=== PATIENT | female | born 1945 | race Caucasian/White ===

== ENCOUNTER 2023-05-03 09:48 | Emergency (ER) | payer OTHER, SELFPAY ==
[2023-05-03 09:57] VITALS: BP 136/70
[2023-05-03 10:50] LABS: % Basophils 0.4 % (0-2); % Eosinophils 0.2 % (0-6); % Immature Granulocytes 0.3 % (0-0.5); % Lymphocytes 6.3 % (20.5-51.1); % Monocytes 3.3 % (1.7-9.3); % Neutrophils 89.5 % (42.2-75.2); Absolute Lymphocytes 0.6 10^3/uL (1.2-3.4); Absolute Monocytes 0.3 10^3/uL (0.1-0.6); Absolute Neutrophils 9.1 10^3/uL (1.4-6.5); Hematocrit 39.6 % (37.0-47.0); Hemoglobin 13.2 g/dL (12.0-16.0); Mean Corp Hgb Conc. 33.3 g/dL (33.0-37.0); Mean Corpuscular Hgb 29.4 pg (27.0-31.0); Mean Corpuscular Volume 88.2 fL (81.0-99.0); Mean Platelet Volume 11.5 fL (7.4-10.4); Nucleated Red Blood Cells % 0 %; Platelet Count 240 10^3/uL (130-400); Red Blood Cell Count 4.49 10^6/uL (4.20-5.40); Red Cell Dist. Width 14.4 % (11.5-14.5); White Blood Cell Count 10.2 10^3/uL (4.8-10.8)
[2023-05-03 11:03] LABS: ALT (SGPT) 47 U/L (0-35); AST (SGOT) 46 U/L (14-36); Albumin 4.4 g/dl (3.5-5.0); Alkaline Phosphatase 103 U/L (38-126); Blood Urea Nitrogen 24 mg/dl (7-17); Calcium 10.1 mg/dl (8.4-10.2); Carbon Dioxide 25 mmol/L (22-30); Chloride 104 mmol/L (98-107); Glucose 142 mg/dl (70-99); Potassium 4.4 mmol/L (3.5-5.1); Sodium 135 mmol/L (135-145); Total Bilirubin 0.6 mg/dl (0.2-1.3); Total Protein 7.2 g/dl (6.3-8.2); eGFR > 60.00
--- NOTE | 2023-05-03 11:53 | ED.GENMED ---
History of Present Illness
<NAYELY Perez - Last Filed: 05/04/23 07:16>
General
Chief Complaint: Back Pain
Source: patient
Exam Limitations: none
Time Seen by Provider: 05/03/23 10:21
Nursing documentation reviewed up to this point in time: agreed with
Travel History
Have you had any contact with someone who has COVID-19?: No
Do you have any symptoms of coronavirus? Fever > 100 degrees, chills, cough, shortness of breath, sore throat, loss of taste or smell, muscle aches, or headache?: No
History of Present Illness
History of Present Illness:
Patient is a 77-year-old female who presents today with right back pain. Patient ports yesterday morning she noticed it while turning in bed she got up and went through her day and pain had resolved however came back last night and has been
persistent. She does feel at times is worse with movement. She was nauseous with this. She denies any chest pain shortness of breath. Denies any urinary frequency urgency or dysuria. Denies any actual trauma.
Review of Systems
<NAYELY Perez - Last Filed: 05/04/23 07:16>
Review of Systems
Allergies reviewed?: Yes
All Other Systems: ROS reviewed and negative except as documented in HPI and ROS
Constitutional: Reports no symptoms; Denies fever, fatigue or chills
Respiratory: Reports no symptoms
Cardiac: Reports no symptoms
ABD/GI: Reports nausea; Denies vomiting or diarrhea
: Reports flank pain
Musculoskeletal: Reports back pain (right back pain )
Endocrine: Reports no symptoms
Hematologic/Lymphatic: Reports no symptoms
Psychiatric: Reports no symptoms
Phy Exam
<NAYELY Perez - Last Filed: 05/04/23 07:16>
General Physical Exam
General Presentation: no apparent distress
General age: appears stated age
General Skin: warm and dry
General Habitus: normal
General Mental: alert
General Hydration: appears well hydrated
General Chronic Disability: contractures
Cardiovascular Exam
Cardiovascular Exam: regular rate/rhythm, no murmur and normal peripheral pulses
Pulmonary Exam
Pulmonary Exam: lungs clear
Gastrointestinal Exam
Gastrointestinal Exam: non tender and soft
Neurological Exam
Neurological Exam: alert and oriented x3
Musculoskeletal Exam
Musculoskeletal Exam: other (right back pain , questionable mild tenderness to palpation right /lower back however + discomfort at rest in supine position )
Skin Exam
Skin Exam: normal color and warm/dry
Psychiatric Exam
Psychiatric Exam: normal mood/affect
Course
<NAYELY Perez - Last Filed: 05/04/23 07:16>
Orders/Labs/Results
Orders:
Orders
05/03/23 10:40
CMP [Comprehensive Metabolic Panel] Urgent
Complete Blood Count/With Diff Urgent
05/03/23 11:53
Ketorolac [Toradol] 15 mg IV NOW STA
Ondansetron Injectable [Zofran] 4 mg IV NOW STA
05/03/23 11:54
CT Abd/pel Without Iv Or Oral Urgent
Comment:
Reason For Exam: right back pain
05/03/23 13:52
Morphine Sulfate 2 mg IV NOW STA
05/03/23 13:54
US Pelvis W Transvag Combined Urgent
Reason For Exam: right back pain adnexal mass
05/03/23 14:13
UA Reflex to Culture [Urinalysis Reflex To Culture] Urgent
Date Specimen was Collected: 05/03/23
Time Specimen was Collected: 14:08
Abnormal Lab Results
05/03/23 05/03/23
10:40 14:13
MPV 11.5 H fL
(7.4-10.4)
Absolute Neuts (auto) 9.1 H 10^3/uL
(1.4-6.5)
Absolute Lymphs (auto) 0.6 L 10^3/uL
(1.2-3.4)
Neutrophils % 89.5 H %
(42.2-75.2)
Lymphocytes % 6.3 L %
(20.5-51.1)
BUN 24 H mg/dl
(7-17)
Glucose 142 H mg/dl
(70-99)
AST 46 H U/L
(14-36)
ALT 47 H U/L
(0-35)
Urine Ketones 2+ A
(Negative)
05/03/23 10:40
05/03/23 10:40
Vital Signs
Initial and Last Documented VS:
Initial Vital Signs
Temp Pulse Resp BP Pulse Ox
97.9 F 71 16 136/70 98
05/03/23 09:57 05/03/23 09:57 05/03/23 09:57 05/03/23 09:57 05/03/23 09:57
Last Documented Vital Signs
Temp Pulse Resp BP Pulse Ox
97.9 F 82 16 137/75 97
05/03/23 09:57 05/03/23 19:25 05/03/23 19:25 05/03/23 19:25 05/03/23 15:50
<Sara Montana MD - Last Filed: 05/03/23 19:04>
Orders/Labs/Results
Orders:
Orders
05/03/23 10:40
CMP [Comprehensive Metabolic Panel] Urgent
Complete Blood Count/With Diff Urgent
05/03/23 11:53
Ketorolac [Toradol] 15 mg IV NOW STA
Ondansetron Injectable [Zofran] 4 mg IV NOW STA
05/03/23 11:54
CT Abd/pel Without Iv Or Oral Urgent
Comment:
Reason For Exam: right back pain
05/03/23 13:52
Morphine Sulfate 2 mg IV NOW STA
05/03/23 13:54
US Pelvis W Transvag Combined Urgent
Reason For Exam: right back pain adnexal mass
05/03/23 14:13
UA Reflex to Culture [Urinalysis Reflex To Culture] Urgent
Date Specimen was Collected: 05/03/23
Time Specimen was Collected: 14:08
Abnormal Lab Results
05/03/23 05/03/23
10:40 14:13
MPV 11.5 H fL
(7.4-10.4)
Absolute Neuts (auto) 9.1 H 10^3/uL
(1.4-6.5)
Absolute Lymphs (auto) 0.6 L 10^3/uL
(1.2-3.4)
Neutrophils % 89.5 H %
(42.2-75.2)
Lymphocytes % 6.3 L %
(20.5-51.1)
BUN 24 H mg/dl
(7-17)
Glucose 142 H mg/dl
(70-99)
AST 46 H U/L
(14-36)
ALT 47 H U/L
(0-35)
Urine Ketones 2+ A
(Negative)
05/03/23 10:40
05/03/23 10:40
Vital Signs
Initial and Last Documented VS:
Initial Vital Signs
Temp Pulse Resp BP Pulse Ox
97.9 F 71 16 136/70 98
05/03/23 09:57 05/03/23 09:57 05/03/23 09:57 05/03/23 09:57 05/03/23 09:57
Last Documented Vital Signs
Temp Pulse Resp BP Pulse Ox
97.9 F 82 16 137/75 97
05/03/23 09:57 05/03/23 19:25 05/03/23 19:25 05/03/23 19:25 05/03/23 15:50
<NAYELY Perez - Last Filed: 05/04/23 07:16>
MDM/Problems Addressed
Differential Diagnosis Includes:
Not limited to muscle pain, renal colic
MDM/Problems Addressed:
Patient is a 77-year-old female who presented with right-sided back pain. She initially noticed it while rolling over in bed yesterday morning however felt fine throughout the day but pain presented back again throughout the night. It has been
constant however she does complain of pain to the right flank area. She was initially mildly tender on exam to this area and had pain worse with discomfort however over time she reports pain is more constant and she does feel at rest . She is
mildly nauseous with the pain. She denies any fever chills urinary frequency urgency or dysuria. She arrives afebrile with normal labs CAT scan without contrast was performed which does show complex right adnexal mass measuring up to 3 cm
differential includes benign and malignant ovarian lesions. On re-exam patient is having continued pain we will give small dose of IV morphine. She did have Toradol earlier only improved minimally. d/c w/ ED physician will obtain US with
continued pain.
<NAYELY Perez - Last Filed: 05/04/23 07:16>
*Radiology
Radiology exam reviewed: radiology read reviewed (Complex right adnexal mass measuring up to 3.0 cm differential includes benign and malignant ovarian lesion)
*Pulse Oximetry
Patient hypoxic: no
*Critical Care Note
Total Time (30-74mins, 75-104mins- exclusive of procedures): Not Applicable
ED Attending Note
<NAYELY Perez - Last Filed: 05/04/23 07:16>
-
Portions of this chart may have been created with voice recognition software.� Occasional wrong word or��sound alike� substitutions may have occurred due to the inherent limitations of voice recognition software.
<Sara Montana MD - Last Filed: 05/03/23 19:04>
ED Attending Note
Patient seen and examined by attending physician: Yes
I performed the substantive portion of visit, reviewed & personally made and approve the management plan that is documented in note by myself or [facility].: Yes
ED Attending Note:
Patient seen and examined by me, 77-year-old female complains of right-sided flank pain without radiation. Initially was worse with movement now constant. Rated 2 out of 10 at this time. No associated rash noted. No abdominal pain, vomiting,
fever, chills, chest pain, urinary symptoms. She did have nausea which is now resolved. On exam, no midline tenderness, no rash, no skin findings. Patient moves about bed easily. Neurologically intact. Abdomen soft nontender. Extensive workup
which reveals adnexal mass bilaterally with potential for neoplasm. Patient and niece who is at bedside made aware, given disc and copies of report. Unclear if this is related to or the etiology of her back pain. Workup otherwise unrevealing for
serious cause of pain. Discussed with patient importance of follow-up and reasons return to the ER.
Discharge Plan
Departure
Patient Disposition: Home (Routine Discharge)
Date of Disposition: 05/03/23
Time of Disposition: 18:59
Patient with high blood pressure during this ER visit?: Yes
Condition: Fair
Covid-19: Not Applicable
Discharge Problem:
Back pain
Instructions: Back Pain, BLOOD PRESSURE
Prescriptions:
New
acetaminophen-codeine 300-30 mg tablet
1 tab PO Q8H PRN (Reason: Pain) Qty: 7 0RF
Referrals:
UNKNOWN - PT DOES,NOT KNOW [Family Provider] -
Activity Restrictions/Additional Instructions:
Follow-up as discussed with your family doctor/lcsw for further evaluation of findings on your CAT scan: Complex right adnexal(ovarian ) mass measuring up to 3.0 cm.
Return if any worsening of symptoms. PLEASE SEE ATTACHED REPORTS REGARDING CONCERNING FINDINGS IN YOUR PELVIS. IS VERY IMPORTANT THAT YOU HAVE THIS CLOSELY FOLLOWED UP. IF YOU DEVELOP INCREASING OR NEW PAIN, NAUSEA, VOMITING, FEVER, CHILLS,
ABDOMINAL PAIN, NUMBNESS, TINGLING DIFFICULTY URINATING, PAIN WITH URINATION OR BLOOD IN YOUR URINE, OR OTHER WORRISOME SIGNS, PLEASE RETURN TO THE ER IMMEDIATELY.
Interventions
Interventions:
*Risk Screen - Suicide Last Done: 05/03/23 11:57
*General Assessment Last Done: 05/03/23 11:57
ED- Fall Risk Assessment Last Done: 05/03/23 11:57
*ED COVID-19 Vaccine History Last Done: 05/03/23 09:57
*Nursing Disposition Last Done: 05/03/23 19:31
ED-Musculoskeletal Assessment Last Done: 05/03/23 11:57
Discharge Date and Time
Discharge Date/Time: 05/03/23 19:31
[2023-05-03 11:57] VITALS: BMI 20.5
[2023-05-03] MEDS: TORADOL 15 MG IV (12:00)
[2023-05-03] MEDS: ZOFRAN 4 MG IV (12:00)
[2023-05-03 13:45] VITALS: BP 129/74
[2023-05-03] MEDS: MORPHINE SULFATE 2 MG IV (14:07)
[2023-05-03 14:24] LABS: Urine Albumin Negative (Neg - Trace); Urine Bilirubin Negative (Negative); Urine Character Clear (Clear); Urine Color Yellow; Urine Glucose Negative (Negative); Urine Ketone 2+ (Negative); Urine Leukocyte Negative (Negative); Urine Nitrite Negative (Negative); Urine Occult Blood Negative (Negative); Urine Specific Gravity 1.025 (<1.030); Urine Urobilinogen Negative (Neg - 1+)
[2023-05-03 15:50] VITALS: BP 146/77
[2023-05-03 19:25] VITALS: BP 137/75
== END 2023-05-03 19:31 | disposition home or self-care (01) ==
LOC: EMR 09:48
PROVIDERS: Emergency Medicine; Nurse Practitioner; EMERGENCY PHYSICIAN Emergency Medicine
DX: M54.9 Dorsalgia, unspecified (principal); I10 Essential (primary) hypertension
CPT/HCPCS: 99285; 96374; 96375 ×2; 74176; 76830; 76856; 80053; 81003; 85025